=== PATIENT | male | born 1990 | race Caucasian/White ===

== ENCOUNTER 2023-12-05 22:18 | Emergency (ER) | payer SELFPAY ==
--- NOTE | 2023-12-05 22:27 | EKG_ITS ---
[address] [address] [address] [address] Test Date: 2023-12-05 Pat Name: Luciano Lindsey Department: Room: Gender: Male Travel Administrator: LUCIANO : 1990 Requested By: Order Number: [id number] Reading MD: Zak Coronel MD Measurements Intervals [place] Rate: 89 P: 59 NM: 124 QRS: 49 QRSD: 94 T: 41 QT: 366 QTc: 445 Interpretive Statements Poor data quality, interpretation may be adversely affected Normal sinus rhythm Possible Left atrial enlargement Cannot rule out Anterior infarct , age undetermined Electronically Signed On 12-06-2023 13:05:07 PDT by Zak Coronel MD
[2023-12-05 22:29] VITALS: BP 137/73; PULSE 88; RESP 17; TEMP 36.4; O2SAT 99; BMI 34.9
[2023-12-05 22:37] VITALS: PULSE 92; RESP 26
[2023-12-05 22:39] VITALS: BP 179/83; PULSE 95; RESP 16; O2SAT 99
--- NOTE | 2023-12-05 22:57 | PC.NURSE ---
Pt is also concerned about a possible ingrown hair in groin area. It has been bothersome for the last few weeks. Pt states that he is and has no issues for the last 9 years.
[2023-12-05 23:00] VITALS: BP 135/63; PULSE 87; RESP 15; O2SAT 97
[2023-12-05 23:30] VITALS: BP 138/62; PULSE 80; RESP 18; O2SAT 97
[2023-12-06] VITALS: BP 131/60; PULSE 68
[2023-12-06 00:30] VITALS: BP 136/64; PULSE 62; RESP 16; O2SAT 98
--- NOTE | 2023-12-06 00:42 | ED_ITS ---
HPI - Chest Pain General Chief Complaint: Chest Pain Stated Complaint: sharp pains in chest, back pain Time Seen by Provider: 12/06/23 00:42 Source: patient Mode of arrival: Ambulatory History of Present Illness HPI narrative: Patient is a 33-year-old male without significant past medical history presenting today with left-sided chest pain. He says he was playing video games when he got sharp sudden onset left pain he got diaphoretic he would numbness and tingling down both hands lasted less than 10 minutes and has completely resolved now. He is unable to reproduce the pain he has no longer short of breath or diaphoretic. His father did have multiple heart attacks. Starting at the age of 40. He also admits to using MDMA. He also has concern because he has a ingrown hair on his penis. He is in a monogamous relationship for the last 9 years with his , no concern for STD Related Data Allergies Allergy/AdvReac Type Severity Reaction Status Date / Time No Known Drug Allergies Allergy Verified 12/05/23 22:29 Patient History Social History Smoking Status: Current every day smoker Smoking Status: Current every day smoker Substance Use Type: marijuana and hallucinogens Exam Initial Vital Signs Initial Vital Signs: Vital Signs Temperature 97.6 F 12/05/23 22:29 Pulse Rate 88 12/05/23 22:29 Respiratory Rate 17 12/05/23 22:29 Blood Pressure 137/73 12/05/23 22:29 Pulse Oximetry 99 12/05/23 22:29 Oxygen Delivery Method Room Air 12/05/23 22:29 GENERAL: Alert 33-year-old male and in [no acute] distress. HEENT: Head atraumatic,EOMI, pupils reactive, face symmetric, [moist] mucous membranes CARDIOVASCULAR: Regular rate and rhythm without murmurs, rubs or gallops. RESPIRATORY: Breath sounds equal bilaterally, no wheezes rales or rhonchi. ABDOMEN: Soft, nontender. Normoactive bowel sounds all 4 quadrants. No guarding or rebound. : On the proximal base of the penis there is mild erythema and scab. No chancre patient has been putting baby powder on it so it is having white powder EXTREMITIES: Normal range of motion, no clubbing or edema. Neurovascularly intact NEUROLOGICAL: Alert and oriented x4.Normal gait and speech. SKIN: Warm, dry, no laceration, no petechiae, no rashes or lesions. Course Orders Ordered: ED Orders 12/05/23 22:21 EKG-12 Lead Stat Vital Signs Vital signs: Vital Signs - 8 hr 12/05/23 22:29 12/05/23 22:37 12/05/23 22:39 Temperature 97.6 F Pulse Rate 88 92 H Respiratory Rate 17 26 H Blood Pressure 137/73 179/83 H Pulse Oximetry 99 Oxygen Delivery Method Room Air 12/05/23 22:39 12/05/23 23:00 12/05/23 23:00 Temperature Pulse Rate 95 H 87 Respiratory Rate 16 15 Blood Pressure 135/63 Pulse Oximetry 99 97 Oxygen Delivery Method Room Air 12/05/23 23:30 12/05/23 23:30 12/06/23 00:00 Temperature Pulse Rate 80 Respiratory Rate 18 Blood Pressure 138/62 131/60 Pulse Oximetry 97 Oxygen Delivery Method Room Air 12/06/23 00:00 12/06/23 00:30 12/06/23 00:30 Temperature Pulse Rate 68 62 Respiratory Rate 16 Blood Pressure 136/64 Pulse Oximetry 98 Oxygen Delivery Method 12/06/23 01:00 Temperature Pulse Rate 62 Respiratory Rate 16 Blood Pressure Pulse Oximetry 95 Oxygen Delivery Method Room Air MDM - Chest Pain Lab Data Labs: Urine Dip Bedside Urine Glucose Negative Bedside Urine Bilirubin - Negative Bedside Urine Ketone - Negative Urine Specific [place] 1.030 Bedside Urine Occult Blood - Negative Bedside Urine pH 5.5 Bedside Urine Protein - Negative Bedside Urine Urobilinogen - Negative Bedside Urine Nitrite - Negative Bedside Urine Leukocytes - Negative Esterase ECG Data Attestation: I personally reviewed and interpreted this ECG as follows: Prior ECG tracings: available for review Interpretation: Normal sinus rhythm lots of artifact rate 89 FL interval 124 QRS [address] [facility] Narrative Medical decision making narrative: Patient 33-year-old male presenting today with sudden onset left chest pain numbness and tingling down both arms diaphoresis lasting less than 10 minutes and completely resolved. He overall appears very comfortable. He has in no respiratory distress. Unclear what happened today day. His EKGs within normal limits. Unlikely that the area on his penis caused any of this or is related. No concern or chancre or syphilis. Possible small abscess recommended warm compresses and antibiotic ointment. At this time he has been in the ED for couple hours no recurrence of pain. He also is complaining of back pain but he has a chronic. He does not want to take anything for his pain. At this time he would just like to go home. I think this is reasonable Discharge Plan Departure Patient Disposition: Home Clinical Impression: Atypical chest pain Instructions: DI for Atypical Chest Pain Activity Restrictions/Additional Instructions: *You have been diagnosed with atypical chest pain *What to do: At this time I do recommend you have further outpatient workup you do have a family history which is concerning Apply antibiotic ointment to the area-avoid Neosporin or triple antibiotic ointment recommend using bacitracin/mupirocin *Continue to take medications as directed *Follow up with your primary care provider in 2-3 days or call [phone] *Return to ER if you should have increasing chest pain shortness of [or] any new, worsening or concerning symptoms Stand Alone Forms: Patient Portal/API
[2023-12-06 01:00] VITALS: PULSE 62; RESP 16; O2SAT 95
== END 2023-12-06 01:07 | disposition home or self-care (01) ==
PROVIDERS: Emergency Provider Emergency Medicine
DX: R07.89 Other chest pain (principal)
CPT/HCPCS: 81003; 93005; 93010; 99282; 99283

== ENCOUNTER 2024-01-24 10:17 | Emergency (ER) | payer OTHER, SELFPAY ==
[2024-01-24 10:37] VITALS: BP 156/69; PULSE 64; RESP 18; TEMP 37; O2SAT 97; BMI 34.2
--- NOTE | 2024-01-24 11:08 | ED.BACK ---
HPI - Back Pain/Injury <Adry Dillon PA-C - Last Filed: 01/24/24 14:04> General Chief Complaint: Back Pain/Injury Stated Complaint: BACK PAIN Time Seen by Provider: 01/24/24 11:08 History of Present Illness HPI Narrative: Patient is a very pleasant 33-year-old male that presents to the emergency room department today after being seen multiple times in the walk-in clinic with multiple physical complaints. Patient has had ongoing symptoms of 1. Cervical musculoskeletal pain. 2. Mid back musculoskeletal paraspinal muscle discomfort 3. Right-sided rib discomfort, radiating around into his epigastric and chest area increasing with coughing, increasing with deep breaths. 4. Essential tremors in the right hand. 5. Severe anxiety. 6. Feeling run down. 7. Extreme pain throughout his upper body. Unfortunately the patient has not been able to be seen by primary care doctor. He has been seen in the walk-in clinic multiple times, visit a urine on him which was negative for infection, and stated that perhaps he had kidney infection, kidney stones and prescribed tamsulosin for him, the patient looked online of the side effects associated with the medication and felt that the side effects were too many, did not take the medication at all. He has been unable to establish care with a primary care doctor and a struggling due to the fact that he works Thursday through Thursday early in the morning until late afternoon. He states that he has severe anxiety, currently has never been treated, does not have a therapist, has never seen 1, does not know if he has posttraumatic stress disorder, does not know if he has depression. Currently not taking any medications, he works at a sedentary job packing cannabis, no history of asthma, smokes 2-3 g of flower daily and has been doing that for about 12 years. Does not drink heavy alcohol. No other recreational drug use. He uses the cannabis to help with his anxiety as well as his insomnia. Sounds as if he has a very stressful home environment, his is currently taking mental health medications, sounds as if they have a special needs child that they are currently caring for. Patient is extremely frustrated with the lack of ability to be seen or establish care with a primary care doctor pallor he does not have a relationship or did not have a relationship with his father so it does not really know a lot about his medical history except he had some heart problems. His mother has underlying medical problems heart problems, his sister has some medical problems but nothing substantial. He does not know if he has any medical problems because he states he has never been really seen by a doctor. Does not currently take any prescribed medications. He came to the emergency room department because he wants to figure out exactly why he feels the way that he does. I am having a hard time explaining to the patient that I understand how he feels unfortunately in the emergency department is not necessarily the correct place to attempt to establish care and have a full workup for ongoing physical complaints that are not necessarily acute in nature and have been ongoing for an extended period of time. However, I have acquiesced due to the fact that the patient seems to be very frustrated with his lack of ability to seek medical care and I have ordered at least some preventative medical tests so when he does he is primary care doctor he can review the tests and at least start his medical journey on trying to figure out why he is feeling the way that he is feeling. Related Data Previous Rx's Medication Instructions Recorded cyclobenzaprine 10 mg tablet 10 mg PO TID #15 tabs 01/24/24 Allergies Allergy/AdvReac Type Severity Reaction Status Date / Time No Known Drug Allergies Allergy Verified 12/05/23 22:29 Review of Systems <Adry Dillon PA-C - Last Filed: 01/24/24 14:04> Review of Systems Narrative: Negative except as above Respiratory Comments: Pain in the rib area with coughing Musculoskeletal Comments: Rib pain, cervical neck pain, back pain, thoracic pain, paraspinal pain, pain with twisting, pain with breathing, pain with coughing, musculoskeletal pain, Psychiatric Comments: Essential tremor, possible depression, possible anxiety, possible posttraumatic stress disorder, unknown Endocrine Comments: Possible autoimmune, possible fibromyalgia, possible underlying rheumatologic disorder. Patient History <Adry Dillon PA-C - Last Filed: 01/24/24 14:04> Social History Smoking Status: Current every day smoker Smoking Status: Current every day smoker alcohol intake frequency: other Substance Use Type: marijuana and hallucinogens Exam <Adry Dillon PA-C - Last Filed: 01/24/24 14:04> Initial Vital Signs Initial Vital Signs: Vital Signs Temperature 98.6 F 10/27/24 10:37 Pulse Rate 64 01/24/24 10:37 Respiratory Rate 18 01/24/24 10:37 Blood Pressure 156/69 H 01/24/24 10:37 Pulse Oximetry 97 01/24/24 10:37 Oxygen Delivery Method Room Air 01/24/24 10:37 Reviewed Const General: cooperative, well developed, No acute distress, No in distress, anxious and well hydrated Nutritional Appearance: average body habitus Orientation: Orientation Eyes General: Yes appearance normal, both eyes and all related structures Eyelids: eyelids normal Conjunctivae: conjunctivae normal Sclera: sclerae normal Cornea: corneas normal Pupils: PERRL EOM: EOM intact bilaterally Neck Neck: normal visual inspection, full ROM, No no meningeal signs, trachea midline, supple, No anterior neck swelling, No lymphadenopathy, No midline deformity, tender and No torticollis Lymphatic: No lymphadenopathy Other: Patient has discomfort and pain with range of motion is seems to be mostly musculoskeletal and on the side of the cervical spine. He is pain with forward flexion and pulled pain with extension. However it does not have pain with axial loading. His range of motion is not impaired. He does not have any phonation problems. Does not have any difficulty swallowing. Chest Other: Patient states that he has pain with coughing, and holds his chest when he coughs. Resp Other: Clear to auscultation, no wheezes, rales, rhonchi, crackles are noted on exam. Cardio Other: Regular rate rhythm without any murmurs rubs or gallops. Back/Spine/Pelvis Other: Patient states that he has midline cervical tenderness thoracic tenderness and this generalized paraspinal discomfort and pain upon palpation throughout the upper shoulder girdles, down through the thoracic paraspinal muscle. Skin Other: Pale, warm, dry. Neuro Other: Patient's cranial nerves are grossly intact. Cognition is intact, speech, gait, motor is intact. Extrem Other: Range of motion, strength, pulses, cap refill is preserved in the upper and lower extremities. Psych Appearance: grossly normal Mental Status: mental status grossly normal Speech and Movement: other (Flat affect slow speech he quickly becomes slightly agitated) Mood: irritable mood Affect: anxious affect and irritable affect Attitude: cooperative Thought Process: normal Thought Content: normal Judgment: judgment good Other: I understand the patient frustration, but I am trying to explain to him that unfortunately in the emergency room department we have limited resources, and unfortunately I am not able to do everything that he wants here this is an unfortunately not a primary care clinic and there is nobody to follow up on all of the things that he wants done and this is something that needs to be arranged for him taken care of the primary care clinic with a primary care doctor. I understand his frustration I have explained to my understand his frustration I have acquiesce and ordered x-rays and have ordered a large battery of primary care labs so that at least there done for him so when he is able to see a primary care doctor these labs have been done for the patient prematurely. <Zulema Gallegos MD - Last Filed: 01/24/24 20:40> Initial Vital Signs Initial Vital Signs: Vital Signs Temperature 98.6 F 01/24/24 10:37 Pulse Rate 64 01/24/24 10:37 Respiratory Rate 18 01/24/24 10:37 Blood Pressure 156/69 H 01/24/24 10:37 Pulse Oximetry 97 01/24/24 10:37 Oxygen Delivery Method Room Air 01/24/24 10:37 Scores <Adry Dillon PA-C - Last Filed: 01/24/24 14:04> GCS Citation: 15 Course <Adry Dillon PA-C - Last Filed: 01/24/24 14:04> Orders Ordered: ED Orders 01/24/24 11:54 CBC Auto Diff [Complete Blood Count AUTO DIFF] Stat CMP [Comprehensive Metabolic Panel] Stat Folate Stat Free T4, Direct Thyroxine Routine Hemoglobin A1C% w Est Avg Glu Stat Iron Stat Lipid Panel Stat TSH [Thyroid Stimulating Hormone] Stat Vitamin B12 Stat Vitamin D 25 Hydroxy (D3) Stat 01/24/24 12:23 Consult to ASSOCIATE DIRECTOR - [employer]ic Stat Discontinued Medications Ketorolac Tromethamine (Ketorolac 30 Mg/Ml Vial) 30 mg IM NOW ONE Stop: 01/24/24 11:41 Last Admin: 01/24/24 11:47 Dose: 30 mg Documented By: JEFFERY Vital Signs Vital signs: Vital Signs - 8 hr 01/24/24 13:29 Pulse Rate 62 Respiratory Rate 14 Blood Pressure 133/71 Pulse Oximetry 99 Oxygen Delivery Method Room Air Reviewed <Zulema Gallegos MD - Last Filed: 01/24/24 20:40> Orders Ordered: ED Orders 01/24/24 11:54 CBC Auto Diff [Complete Blood Count AUTO DIFF] Stat CMP [Comprehensive Metabolic Panel] Stat Folate Stat Free T4, Direct Thyroxine Routine Hemoglobin A1C% w Est Avg Glu Stat Iron Stat Lipid Panel Stat TSH [Thyroid Stimulating Hormone] Stat Vitamin B12 Stat Vitamin D 25 Hydroxy (D3) Stat 01/24/24 12:23 Consult to ASSOCIATE DIRECTOR - [employer] Mechanic Stat Discontinued Medications Ketorolac Tromethamine (Ketorolac 30 Mg/Ml Vial) 30 mg IM NOW ONE Stop: 01/24/24 11:41 Last Admin: 01/24/24 11:47 Dose: 30 mg Documented By: JEFFERY Vital Signs Vital signs: Vital Signs - 8 hr 01/24/24 13:29 Pulse Rate 62 Respiratory Rate 14 Blood Pressure 133/71 Pulse Oximetry 99 Oxygen Delivery Method Room Air MDM - Back Pain/Injury <Adry Dillon PA-C - Last Filed: 01/24/24 14:04> Lab Data 01/24/24 11:54 01/24/24 11:54 Labs: Lab Results 01/24/24 Range/Units 11:54 WBC 8.9 (4.5-11.0) X10^3/uL RBC 4.97 (4.5-5.9) X10^6/uL Hgb 14.3 (13.5-17.5) g/dL Hct 42.6 (41-53) % MCV 85.7 (80-100) fL MCH 28.7 (26-34) PG MCHC 33.5 (30-36) % RDW 12.9 (11.6-14.8) % Plt Count 252 (150-400) X10^3/uL Neut % (Auto) 72.6 (50-75) % Lymph % (Auto) 20.4 L (25-40) % [place] % (Auto) 6.0 (3-14) % Eos % (Auto) 0.7 L (2-4) % Baso % (Auto) 0.3 (0-2) % Neut # (Auto) 6400 (1703-2608) /uL Lymph # (Auto) 1800 (8304-3547) /uL [place] # (Auto) 500 (0-900) /uL Eos # (Auto) 100 (0-450) /uL Baso # (Auto) 0 (0-100) /uL Sodium 139 (137-145) mmol/L Potassium 3.9 (3.4-5.1) mmol/L Chloride 107 (98-107) mmol/L Carbon Dioxide 26 (22-32) mmol/L BUN 9 (9-20) mg/dL Creatinine 0.85 (0.66-1.25) mg/dL Estimated GFR > 60 (>60) mL/min BUN/Creatinine Ratio 10.6 (6-22) Glucose 99 (70-100) mg/dL Hemoglobin A1c 5.5 (4.0-6.0) % Calcium 9.0 (8.4-10.2) mg/dL Iron 49 (49-181) ug/dL Total Bilirubin 0.3 (0.2-1.3) mg/dL AST 24 (17-59) IU/L ALT 17 (<50) IU/L Alkaline Phosphatase 65 (38-126) U/L Total Protein 7.4 (6.3-8.2) g/dL Albumin 4.2 (3.5-5.0) g/dL Globulin 3.2 (1.7-4.1) g/dL Albumin/Globulin Ratio 1.3 (1.0-2.8) Triglycerides 159 H (35-150) mg/dL Cholesterol 154 (140-199) mg/dL LDL Cholesterol, Calc 81 (<100) mg/dL HDL Cholesterol 41 (40-60) mg/dL Vitamin B12 515 (239-931) pg/mL 25-OH Vitamin D Total 24.1 L (30.0-100.0) ng/mL Folate 6.8 (2.76-20.0) ng/mL TSH 1.51 (0.47-4.68) uIU/mL Free T4 1.06 (0.78-2.19) ng/dL Urine Dip Bedside Urine Glucose Negative Bedside Urine Bilirubin - Negative Bedside Urine Ketone - Negative Urine Specific [place] 1.010 Bedside Urine Occult Blood - Negative Bedside Urine pH 8.5 Bedside Urine Protein - Negative Bedside Urine Urobilinogen - Negative Bedside Urine Nitrite - Negative Bedside Urine Leukocytes - Negative Esterase Imaging Data C-spine: Radiologist's Impression: [address] [address] XRay Report Signed Patient: Luciano Lindsey MR#: [id number] : 1990 Acct:[id number] Age/Sex: 33 / M Date of Service: 01/24/24 Loc: ED Accession Number: [id number] Procedure: XR cervical spine 2V or 3V Ordering Provider: Adry Dillon PA-C PROCEDURE: XR CERVICAL SPINE 2V OR 3V INDICATIONS: pain TECHNIQUE: 3 view(s) of the cervical spine were acquired. COMPARISON: None. FINDINGS: Bones: No fractures or dislocations to the T1 level. The lateral masses of C1 appear intact on the odontoid view. No suspicious bony lesions. Soft tissues: No prevertebral soft tissue swelling. IMPRESSION: No displaced fracture or traumatic subluxation. Dictated by: Cheo Garcia M.D. on 01/24/2024 at 12:50 Approved by: Cheo Garcia M.D. on 01/24/2024 at 12:51 Thoracic spine: Radiologist's Impression: [place] [address] XRay Report Signed Patient: Luciano Lindsey MR#: [id number] : 1990 Acct:[id number] Age/Sex: 33 / M Date of Service: 01/24/24 Loc: ED Accession Number: [id number] Procedure: XR cervical spine 2V or 3V Ordering Provider: Adry Dillon PA-C PROCEDURE: XR CERVICAL SPINE 2V OR 3V INDICATIONS: pain TECHNIQUE: 3 view(s) of the cervical spine were acquired. COMPARISON: None. FINDINGS: Bones: No fractures or dislocations to the T1 level. The lateral masses of C1 appear intact on the odontoid view. No suspicious bony lesions. Soft tissues: No prevertebral soft tissue swelling. IMPRESSION: No displaced fracture or traumatic subluxation. Dictated by: Cheo Garcia M.D. on 01/24/2024 at 12:50 Approved by: Cheo Garcia M.D. on 01/24/2024 at 12:51 MDM Narrative Medical decision making narrative: This is a 33-year-old male with multitude of physical complaints been ongoing for an extended period of time who unfortunately is extremely frustrated because he has no primary care doctor, unable to get into a primary care doctor who was finally decided to be seen in the emergency department to see if the Emergency Department can figure out why he has felt under the weather with multiple chronic physical complaints for the last 6 months to a year. Unfortunately none of the complaints that he has are currently acute. I have acquiesced and done a large workup for him so that when he does finally get a primary care doctor he can follow up with the results. I have advised him that his x-rays are negative for any acute findings and the lab work that has come back today is negative for any substantial acute findings except that his cholesterol was mildly elevated, and that his vitamin-D was mildly low which I encouraged him to start vitamin-D supplementation. And then I encouraged him to follow up with his primary care doctor and discuss his ongoing medical physical complaints to then perhaps further delve into his ongoing issues. I do feel that there might be an underlying component of some type of anxiety, possibly depression that is not currently being treated or evaluated at this point in time that might be driving some of the physical complaints the patient currently has. Ongoing chronic musculoskeletal complaints, well adult check. <Zulema Gallegos MD - Last Filed: 01/24/24 20:40> Lab Data Labs: Lab Results 01/24/24 Range/Units 11:54 WBC 8.9 (4.5-11.0) X10^3/uL RBC 4.97 (4.5-5.9) X10^6/uL Hgb 14.3 (13.5-17.5) g/dL Hct 42.6 (41-53) % MCV 85.7 (80-100) fL MCH 28.7 (26-34) PG MCHC 33.5 (30-36) % RDW 12.9 (11.6-14.8) % Plt Count 252 (150-400) X10^3/uL Neut % (Auto) 72.6 (50-75) % Lymph % (Auto) 20.4 L (25-40) % [place] % (Auto) 6.0 (3-14) % Eos % (Auto) 0.7 L (2-4) % Baso % (Auto) 0.3 (0-2) % Neut # (Auto) 6400 (3049-0085) /uL Lymph # (Auto) 1800 (2040-2000) /uL [place] # (Auto) 500 (0-900) /uL Eos # (Auto) 100 (0-450) /uL Baso # (Auto) 0 (0-100) /uL Sodium 139 (137-145) mmol/L Potassium 3.9 (3.4-5.1) mmol/L Chloride 107 (98-107) mmol/L Carbon Dioxide 26 (22-32) mmol/L BUN 9 (9-20) mg/dL Creatinine 0.85 (0.66-1.25) mg/dL Estimated GFR > 60 (>60) mL/min BUN/Creatinine Ratio 10.6 (6-22) Glucose 99 (70-100) mg/dL Hemoglobin A1c 5.5 (4.0-6.0) % Calcium 9.0 (8.4-10.2) mg/dL Iron 49 (49-181) ug/dL Total Bilirubin 0.3 (0.2-1.3) mg/dL AST 24 (17-59) IU/L ALT 17 (<50) IU/L Alkaline Phosphatase 65 (38-126) U/L Total Protein 7.4 (6.3-8.2) g/dL Albumin 4.2 (3.5-5.0) g/dL Globulin 3.2 (1.7-4.1) g/dL Albumin/Globulin Ratio 1.3 (1.0-2.8) Triglycerides 159 H (35-150) mg/dL Cholesterol 154 (140-199) mg/dL LDL Cholesterol, Calc 81 (<100) mg/dL HDL Cholesterol 41 (40-60) mg/dL Vitamin B12 515 (239-931) pg/mL 25-OH Vitamin D Total 24.1 L (30.0-100.0) ng/mL Folate 6.8 (2.76-20.0) ng/mL TSH 1.51 (0.47-4.68) uIU/mL Free T4 1.06 (0.78-2.19) ng/dL Urine Dip Bedside Urine Glucose Negative Bedside Urine Bilirubin - Negative Bedside Urine Ketone - Negative Urine Specific [place] 1.010 Bedside Urine Occult Blood - Negative Bedside Urine pH 8.5 Bedside Urine Protein - Negative Bedside Urine Urobilinogen - Negative Bedside Urine Nitrite - Negative Bedside Urine Leukocytes - Negative Esterase Discharge Plan Departure Patient Disposition: Home Clinical Impression: Diffuse myofascial pain syndrome, Well adult health check Activity Restrictions/Additional Instructions: Please make arrangements to establish care with a primary care doctor Cervical spine is negative for any acute findings Thoracic spine is negative for any acute findings So far the lab work that is come back today does not show any major substantial findings Your cholesterol is mildly elevated Your vitamin-D is mildly low I would start a vitamin-D supplementation I did start and send a prescription of a muscle relaxer to your pharmacy and [place] Prescriptions: New cyclobenzaprine 10 mg tablet 10 mg PO TID Qty: 15 0RF Stand Alone Forms: Patient Portal/API ED Sign-out <Zulema Gallegos MD - Last Filed: 01/24/24 20:40> Cosign ED Attending Cosignature Attestation: I was immediately available in the department for consultation throughout this patient's visit. Zulema Gallegos MD
--- NOTE | 2024-01-24 11:35 | DI.RAD.S_ITS ---
PROCEDURE: XR CERVICAL SPINE 2V OR 3V INDICATIONS: pain TECHNIQUE: 3 view(s) of the cervical spine were acquired. COMPARISON: None. FINDINGS: Bones: No fractures or dislocations to the T1 level. The lateral masses of C1 appear intact on the odontoid view. No suspicious bony lesions. Soft tissues: No prevertebral soft tissue swelling. IMPRESSION: No displaced fracture or traumatic subluxation. Dictated by: Cheo Garcia M.D. on 01/24/2024 at 12:50 Approved by: Cheo Garcia M.D. on 01/24/2024 at 12:51
--- NOTE | 2024-01-24 11:35 | DI.RAD.S_ITS ---
PROCEDURE: XR THORACIC SPINE 3V INDICATIONS: back pain TECHNIQUE: 3 views of the thoracic spine were acquired. COMPARISON: None. FINDINGS: Bones: No fractures or dislocations. No suspicious bony lesions. 12 pairs of ribs are noted, and appear intact where visualized. Soft tissues: No paravertebral stripe thickening. IMPRESSION: No acute bony abnormality. Dictated by: Cheo Garcia M.D. on 01/24/2024 at 12:51 Approved by: Cheo Garcia M.D. on 01/24/2024 at 12:51
[2024-01-24] MEDS: KETOROLAC 30 MG/ML VIAL IM (11:47)
[2024-01-24 12:19] LABS: Add Manual Diff / Slide Review NO; Basophils Absolute Auto 0 /uL (0-100); Basophils Percent Auto 0.3 % (0-2); Eosinophils Absolute Auto 100 /uL (0-450); Eosinophils Percent Auto 0.7 % (2-4); Hematocrit 42.6 % (41-53); Hemoglobin 14.3 g/dL (13.5-17.5); Lymphocytes Absolute Auto 1800 /uL (1100-4500); Lymphocytes Percent Auto 20.4 % (25-40); Mean Corpuscular HGB Conc 33.5 % (30-36); Mean Corpuscular Hemoglobin 28.7 PG (26-34); Mean Corpuscular Volume 85.7 fL (80-100); Monocytes Absolute Auto 500 /uL (0-900); Neutrophils Absolute Auto 6400 /uL (1500-7000); Neutrophils Percent Auto 72.6 % (50-75); Platelet Count 252 X10^3/uL (150-400); Red Blood Cell Count 4.97 X10^6/uL (4.5-5.9); Red Cell Distribution Width 12.9 % (11.6-14.8); White Blood Cell Count 8.9 X10^3/uL (4.5-11.0)
[2024-01-24 12:29] LABS: Alanine Aminotransferase 17 IU/L (<50); Albumin 4.2 g/dL (3.5-5.0); Albumin Globulin Ratio 1.3 (1.0-2.8); Alkaline Phosphatase 65 U/L (38-126); Aspartate Aminotransferase 24 IU/L (17-59); BUN Creatinine Ratio 10.6 (6-22); Bilirubin Total 0.3 mg/dL (0.2-1.3); Blood Urea Nitrogen 9 mg/dL (9-20); Carbon Dioxide 26 mmol/L (22-32); Chloride 107 mmol/L (98-107); Cholesterol 154 mg/dL (140-199); Estimated Glomerular Filt Rate > 60 mL/min (>60); Globulin 3.2 g/dL (1.7-4.1); Glucose 99 mg/dL (70-100); HDL Cholesterol 41 mg/dL (40-60); HEMOLYSIS < 15 (0-50); LDL Cholesterol Calculated 81 mg/dL (<100); Potassium 3.9 mmol/L (3.4-5.1); Sodium 139 mmol/L (137-145); Total Protein 7.4 g/dL (6.3-8.2); Triglycerides 159 mg/dL (35-150)
[2024-01-24 12:32] LABS: Hemoglobin A1C% w Est Avg Glu 5.5 % (4.0-6.0)
[2024-01-24 12:33] LABS: Iron 49 ug/dL (49-181)
[2024-01-24 12:50] LABS: Vitamin D 25 Hydroxy (D3) 24.1 ng/mL (30.0-100.0)
[2024-01-24 13:04] LABS: Thyroid Stimulating Hormone 1.51 uIU/mL (0.47-4.68)
[2024-01-24 13:23] LABS: Vitamin B12 515 pg/mL (239-931)
[2024-01-24 13:29] VITALS: BP 133/71; PULSE 62; RESP 14; O2SAT 99
[2024-01-24 13:35] LABS: Free T4, Direct Thyroxine 1.06 ng/dL (0.78-2.19)
[2024-01-24 13:39] LABS: Folate 6.8 ng/mL (2.76-20.0)
== END 2024-01-24 13:34 | disposition home or self-care (01) ==
PROVIDERS: Emergency Provider Physician Assistant
DX: M54.6 Pain in thoracic spine (principal); R07.81 Pleurodynia; R25.1 Tremor, unspecified; R79.89 Other specified abnormal findings of blood chemistry
CPT/HCPCS: 72040; 72072; 80053; 80061; 81003; 82306; 82607; 82746; 83036; 83540; 84439; 84443; 85025; 96372; 99283; 99284; J1885